=== PATIENT | female | born 1975 | race Caucasian/White ===

== ENCOUNTER 2024-01-09 16:51 | Emergency (ER) | payer OTHER, SELFPAY ==
[2024-01-09 16:53] VITALS: BP 150/89
[2024-01-09 18:09] VITALS: BP 130/87
[2024-01-09] MEDS: TORADOL 15 MG IV (18:17)
[2024-01-09] MEDS: NSS 1000 IV (18:18)
[2024-01-09 18:25] LABS: % Basophils 0.6 % (0-2); % Immature Granulocytes 0.4 % (0-0.5); % Lymphocytes 27.9 % (20.5-51.1); % Monocytes 7.5 % (1.7-9.3); % Neutrophils 62.6 % (42.2-75.2); Absolute Basophils 0.1 10^3/uL (0-0.2); Absolute Eosinophils 0.1 10^3/uL (0-0.7); Absolute Lymphocytes 2.2 10^3/uL (1.2-3.4); Absolute Monocytes 0.6 10^3/uL (0.1-0.6); Absolute Neutrophils 4.9 10^3/uL (1.4-6.5); Hematocrit 36.1 % (37.0-47.0); Hemoglobin 13.3 g/dL (12.0-16.0); Mean Corp Hgb Conc. 36.8 g/dL (33.0-37.0); Mean Corpuscular Hgb 32.5 pg (27.0-31.0); Mean Corpuscular Volume 88.3 fL (81.0-99.0); Mean Platelet Volume 8.7 fL (7.4-10.4); Nucleated Red Blood Cells % 0 %; Platelet Count 227 10^3/uL (130-400); Red Blood Cell Count 4.09 10^6/uL (4.20-5.40); Red Cell Dist. Width 12.7 % (11.5-14.5); White Blood Cell Count 7.8 10^3/uL (4.8-10.8)
[2024-01-09 18:38] LABS: ALT (SGPT) 34 U/L (0-35); AST (SGOT) 40 U/L (14-36); Albumin 4.5 g/dl (3.5-5.0); Alkaline Phosphatase 86 U/L (38-126); Blood Urea Nitrogen 20 mg/dl (7-17); Calcium 9.1 mg/dl (8.4-10.2); Carbon Dioxide 29 mmol/L (22-30); Chloride 103 mmol/L (98-107); Glucose 99 mg/dl (70-99); Lipase 99 U/L (23-300); Sodium 138 mmol/L (135-145); Total Bilirubin 0.7 mg/dl (0.2-1.3); eGFR > 60.00
--- NOTE | 2024-01-09 18:47 | ED.GENMED ---
History of Present Illness
General
Chief Complaint: Abdominal Symptoms
Source: patient
Exam Limitations: none
Time Seen by Provider: 01/09/24 17:19
Nursing documentation reviewed up to this point in time: agreed with
Travel History
Have you had any contact with someone who has COVID-19?: No
Do you have any symptoms of coronavirus? Fever > 100 degrees, chills, cough, shortness of breath, sore throat, loss of taste or smell, muscle aches, or headache?: No
History of Present Illness
History of Present Illness:
48-year-old female with history of diverticulitis, endometriosis, kidney stones, C-sections, surgery for her endometriosis with total hysterectomy in 2008 in [place] due to, appendectomy in 2019 in [place], patient presents stating she
developed right lower quadrant pain 4 days ago that has spread to her suprapubic area and generally in the abdomen and including the right lower back. 'Feels like there is a giant ball in my abdomen.' Sometimes pains are sharp and stabbing. Last
week she had a formed stool and noted blood in it. Today she had another bloody stool.
She denies fever or chills. Denies UTI symptoms. Denies vomiting but she does feel nauseous.
Past History
Past History
ED Past Medical History: Other (Endometriosis, kidney stones)
ED Past Surgical History: Gynecological (TAHBSO) and Urological
Social History
Tobacco: Non-smoker
Alcohol: Occasional
Drug: None
Personal:
Living: with family
Employment: Employed
Family History
Family History: Other (glaucoma)
Review of Systems
Review of Systems
Allergies reviewed?: Yes
All Other Systems: ROS reviewed and negative except as documented in HPI and ROS
Constitutional: Denies fever
Respiratory: Denies trouble breathing
Cardiac: Denies chest pain
ABD/GI: Reports abdominal pain, nausea and bloody stools; Denies vomiting, diarrhea, constipated, black stools or anorexia
: Denies dysuria, frequency, difficulty voiding, urgency or bleeding
Musculoskeletal: Reports no symptoms
Skin: Reports no symptoms
Neurological: Reports no symptoms
Phy Exam
Physical Exam
Physical Exam:
GENERAL: No acute distress. A&Ox3.
CONSTITUTIONAL: Afebrile.
EYES: PERRL, conjunctivae normal
ENMT: moist mucus membranes, Pharynx nl
RESPIRATORY: Regular respirations, nonlabored, lungs clear.
CARDIOVASCULAR: Regular rate and rhythm, no murmurs, no rubs.
GI: Soft, generally tender abdomen, normal BS
MUSCULOSKELETAL: Moves with ease. Well perfused.
SKIN: Warm, dry, pink
PSYCH: Mildly anxious mood and affect. Well kept, interactive and appropriate
NEUROLOGIC: Awake, alert and oriented. No focal neurological deficits
Course
Orders/Labs/Results
Orders:
Orders
01/09/24 18:01
Electrocardiogram (*1) Urgent
Reason for Study: QTc Monitoring
EKG- Treatment ONCE
0.9% Sodium Chloride 1000 ml [Nss] 1,000 ml IV BOLUS
Ketorolac [Toradol] 15 mg IV NOW STA
01/09/24 18:16
Complete Blood Count/With Diff Urgent
Comprehensive Metabolic Panel Urgent
Lipase Urgent
01/09/24 18:46
Ondansetron Injectable [Zofran] 4 mg IV NOW STA
01/09/24 18:52
Iohexol [Omnipaque] 50 ml .ROUTE .[facility]
01/09/24 18:59
Iohexol [Omnipaque] See Protocol PO NOW STA
01/09/24 19:02
CT Abd/pel W Iv And Oral Contr Urgent
Comment:
Reason For Exam: general abd pain, blood in stool
01/09/24 19:29
HYDROmorphone [Dilaudid] 1 mg IV NOW STA
01/09/24 20:42
Urinalysis Reflex To Culture Urgent
Date Specimen was Collected: 01/09/24
Time Specimen was Collected: 20:08
Urine Microscopic Reflex Cult Urgent
01/09/24 21:43
LevoFLOXacin [Levaquin] 500 mg PO NOW STA
MetroNIDAZOLE [Flagyl] 500 mg PO NOW STA
01/09/24 21:48
HYDROmorphone [Dilaudid] 0.5 mg IV NOW STA
Abnormal Lab Results
01/09/24 01/09/24
18:16 20:42
RBC 4.09 L 10^6/uL
(4.20-5.40)
Hct 36.1 L %
(37.0-47.0)
MCH 32.5 H pg
(27.0-31.0)
BUN 20 H mg/dl
(7-17)
AST 40 H U/L
(14-36)
Ur Occult Blood Reflex 1+ A
(Negative)
Leukocyte Esterase Rfl Trace A
(Negative)
Urine RBC 3-6 A /HPF
(0-2)
01/09/24 18:16
01/09/24 18:16
Vital Signs
Initial and Last Documented VS:
Initial Vital Signs
Temp Pulse Resp BP Pulse Ox
98.8 F 95 16 150/89 98
01/09/24 16:53 01/09/24 16:53 01/09/24 16:53 01/09/24 16:53 01/09/24 16:53
Last Documented Vital Signs
Temp Pulse Resp BP Pulse Ox
98.8 F 75 18 134/93 99
01/09/24 16:53 01/09/24 21:56 01/09/24 21:56 01/09/24 21:54 01/09/24 21:56
MDM/Problems Addressed
Differential Diagnosis Includes:
Diverticulitis, colitis
MDM/Problems Addressed:
48-year-old female with history of diverticulitis, endometriosis, kidney stones, C-sections, surgery for her endometriosis with total hysterectomy in 2009 in [place] due to, appendectomy in 2019 in [place], patient presents stating she
developed right lower quadrant pain 4 days ago that has spread to her suprapubic area and generally in the abdomen and including the right lower back. 'Feels like there is a giant ball in my abdomen.' Sometimes pains are sharp and stabbing. Last
week she had a formed stool and noted blood in it. Today she had another bloody stool.
She denies fever or chills. Denies UTI symptoms. Denies vomiting but she does feel nauseous.
Afebrile
EKG NSR, normal QT interval
7:00 PM
CBC unremarkable
CMP unremarkable
UA negative
9:00 p.m.
IMPRESSION:
Under distention versus mild wall thickening/colitis involving the descending colon.
Mild colonic fecal burden.
No dilated bowel loops or evidence of bowel obstruction. No evidence of pneumatosis.
Nonobstructing right renal calculi.
Pt significant relief of pain after pain med, states pain is returning 7/ pain med ordered
Pt with allergy to PCN, started on Flagyl/Levaquin. Rx sent to her pharmacy
Small dose of pain meds sent to her pharmacy
*EKG
Interpreted by ED Provider?: Yes
EKG Intrepretation Date: 01/09/24
Interpretation: normal
Rate: normal
Rhythm: sinus
[place]: normal axis
Interval: normal interval
QRS Pattern: normal QRS
Ischemia: no ischemia
*Critical Care Note
Total Time (30-74mins, 75-104mins- exclusive of procedures): Not Applicable
ED Attending Note
-
Portions of this chart may have been created with voice recognition software.� Occasional wrong word or��sound alike� substitutions may have occurred due to the inherent limitations of voice recognition software.
Discharge Plan
Departure
Patient Disposition: Home (Routine Discharge)
Date of Disposition: 01/09/24
Time of Disposition: 21:51
Patient with high blood pressure during this ER visit?: No
Condition: Good
Discharge Problem:
Colitis
Instructions: Colitis, Clear Liquid Diet
Prescriptions:
New
hydrocodone-acetaminophen 5-325 mg tablet
1 tab PO Q8H PRN (Reason: Pain) Qty: 6 0RF
metronidazole 500 mg tablet
500 mg PO TID Qty: 20 0RF
levofloxacin 500 mg tablet
500 mg PO DAILY 6 Days Qty: 6 0RF
No Action
escitalopram oxalate 20 MG tablet
30 mg PO DAILY
buprenorphine-naloxone 1 TAB tablet, sublingual
0.25 ea sublingual .QTHREEDAYS PRN (Reason: withdrawl)
brexpiprazole [Rexulti] 1 MG tablet
1 mg PO DAILY
ketorolac 10 MG tablet
10 mg PO Q6HPRN PRN (Reason: severe pain) Qty: 20 0RF
tolterodine 4 MG capsule,extended release 24hr
4 mg PO DAILY Qty: 7 0RF
ketorolac 10 MG tablet
10 mg PO Q6HPRN PRN (Reason: Pain) Qty: 20 0RF
tamsulosin 0.4 MG capsule
0.4 mg PO DAILY Qty: 5 0RF
ondansetron 4 MG tablet,disintegrating
4 mg PO Q8HPRN PRN (Reason: Nausea/Vomiting) Qty: 10 0RF
diclofenac sodium 75 mg tablet,delayed release (DR/EC)
75 mg PO BID Qty: 10 0RF
oxycodone-acetaminophen [Percocet] 5-325 mg Tablet
1 tab PO Q4HPRN PRN (Reason: pain) Qty: 10 0RF
Referrals:
Rosalinda Bynum DO [Family Provider] -
Xavi Matthews MD [Active] - Next open appointment
Activity Restrictions/Additional Instructions:
As we discussed, I am treating you for colitis. Call the GI doctors office Friday morning and make next available appointment for follow-up.
I sent a prescription to your pharmacy for the antibiotics to take for 7 days you were given your first doses here today
I also sent a prescription for hydrocodone to use as needed for pain that is not relieved with ibuprofen.
Clear liquid diet for 2 days to give your bowel a rest.
Interventions
Interventions:
*Risk Screen - Suicide Last Done: 01/09/24 18:21
*General Assessment Last Done: 01/09/24 18:21
*Neglect/Abuse Screening Last Done: 01/09/24 18:21
ED- Fall Risk Assessment Last Done: 01/09/24 22:07
*ED COVID-19 Vaccine History Last Done: 01/09/24 16:53
*Nursing Disposition Last Done: 01/09/24 22:07
RT-Rwqobk-Bwveldlxgd Assessment Last Done: 01/09/24 18:16
Discharge Date and Time
Discharge Date/Time: 01/09/24 22:07
Print Language: OCCITAN
[2024-01-09] MEDS: ZOFRAN 4 MG IV (18:53)
[2024-01-09 19:00] VITALS: BP 125/83
[2024-01-09] MEDS: OMNIPAQUE 50 ML PO (19:04)
[2024-01-09] MEDS: DILAUDID 1 MG IV (19:32)
[2024-01-09 20:50] LABS: Urine Albumin Negative (Neg - Trace); Urine Bilirubin Negative (Negative); Urine Character Clear (Clear); Urine Color Yellow; Urine Glucose Negative (Negative); Urine Ketone Negative (Negative); Urine Leukocyte Trace (Negative); Urine Nitrite Negative (Negative); Urine Occult Blood 1+ (Negative); Urine Specific Gravity 1.015 (<1.030); Urine Urobilinogen Negative (Neg - 1+)
[2024-01-09 21:05] LABS: Urine Mucus Few
[2024-01-09 21:08] LABS: Urine White Cell 0-2 /HPF (0-5)
[2024-01-09] MEDS: FLAGYL 500 MG PO (21:51)
[2024-01-09] MEDS: LEVAQUIN 500 MG PO (21:51)
[2024-01-09] MEDS: DILAUDID 0.5 MG IV (21:51)
[2024-01-09 21:54] VITALS: BP 134/93
== END 2024-01-09 22:07 | disposition home or self-care (01) ==
LOC: EMR 16:51
PROVIDERS: Registered Nurse; EMERGENCY PHYSICIAN Emergency Medicine; FAMILY PHYSICIAN Family Medicine
DX: K52.9 Noninfective gastroenteritis and colitis, unspecified (principal)
CPT/HCPCS: 99285; 96374; 96375 ×2; 96361; 96376; 74177; 80053; 81003; 81015; 83690; 85025; 93005; Q9967

== ENCOUNTER 2024-10-12 14:25 | Emergency (ER) | payer OTHER, SELFPAY ==
[2024-10-12 14:27] VITALS: BP 150/97
[2024-10-12 14:47] LABS: % Basophils 0.3 % (0-2); % Eosinophils 0.6 % (0-6); % Immature Granulocytes 0.3 % (0-0.5); % Lymphocytes 9.3 % (20.5-51.1); % Monocytes 6.2 % (1.7-9.3); % Neutrophils 83.3 % (42.2-75.2); Absolute Eosinophils 0.1 10^3/uL (0-0.7); Absolute Lymphocytes 1.2 10^3/uL (1.2-3.4); Absolute Monocytes 0.8 10^3/uL (0.1-0.6); Absolute Neutrophils 10.6 10^3/uL (1.4-6.5); Hematocrit 37.3 % (37.0-47.0); Hemoglobin 13.6 g/dL (12.0-16.0); Mean Corp Hgb Conc. 36.5 g/dL (33.0-37.0); Mean Corpuscular Hgb 33.6 pg (27.0-31.0); Mean Corpuscular Volume 92.1 fL (81.0-99.0); Mean Platelet Volume 8.7 fL (7.4-10.4); Nucleated Red Blood Cells % 0 %; Platelet Count 238 10^3/uL (130-400); Red Blood Cell Count 4.05 10^6/uL (4.20-5.40); Red Cell Dist. Width 12.4 % (11.5-14.5); White Blood Cell Count 12.7 10^3/uL (4.8-10.8)
[2024-10-12 15:12] LABS: ALT (SGPT) 35 U/L (0-35); AST (SGOT) 35 U/L (14-36); Albumin 4.4 g/dl (3.5-5.0); Alkaline Phosphatase 100 U/L (38-126); Blood Urea Nitrogen 16 mg/dl (7-17); Calcium 9.4 mg/dl (8.4-10.2); Carbon Dioxide 28 mmol/L (22-30); Chloride 99 mmol/L (98-107); Glucose 137 mg/dl (70-99); Lipase 119 U/L (23-300); Potassium 4.2 mmol/L (3.5-5.1); Sodium 135 mmol/L (135-145); Total Bilirubin 0.8 mg/dl (0.2-1.3); Total Protein 7.1 g/dl (6.3-8.2); eGFR > 60.00
[2024-10-12 15:30] VITALS: BMI 25.4
--- NOTE | 2024-10-12 15:30 | ED.GENMED ---
History of Present Illness
General
Chief Complaint: Abdominal Pain
Source: patient
Exam Limitations: none
Time Seen by Provider: 10/12/24 15:19
Nursing documentation reviewed up to this point in time: agreed with
History of Present Illness
History of Present Illness:
48-year-old female with past medical history as noted presents to the ER for evaluation of abdominal pain also complaining of severe headache. Patient reports symptoms started yesterday and gradually worsened throughout the day have been constant
since then. She reports initially started with sharp pain in the suprapubic region radiating through towards the right abdomen/flank. She said she did briefly have some shooting pains down the right leg as well although that seems to have
resolved. She says that she has had associated nausea, no vomiting. No diarrhea or constipation. She reports that this morning when she woke up abdominal/flank pain continued and she started to develop a severe headache which she says is very
unusual for her. She reports diffuse pressure sensation in head. She did have minor head strike on a bathroom cabinet but no other serious trauma. She denies any neck pain or stiffness. She denies any other complaints. She did take Advil today
for symptoms at around noon but did not notice improvement. Prior surgical history of appendectomy, hysterectomy and laparoscopy for endometriosis. Chart review shows multiple visits in the past for right-sided abdominal pain of unclear etiology.
Past History
Past History
ED Past Medical History: Other (Endometriosis, kidney stones)
ED Past Surgical History: Gynecological (TAHBSO) and Urological
Social History
Tobacco: Non-smoker
Alcohol: Occasional
Drug: None
Personal:
Living: with family
Employment: Employed
Family History
Family History: Other (glaucoma)
Review of Systems
Review of Systems
All Other Systems: ROS reviewed and negative except as documented in HPI and ROS
Constitutional: Denies fever or chills
Respiratory: Denies trouble breathing
Cardiac: Denies chest pain
ABD/GI: Reports abdominal pain and nausea; Denies vomiting, diarrhea or constipated
: Reports flank pain; Denies dysuria, frequency or bleeding
Musculoskeletal: Denies neck pain
Neurological: Reports headache
Phy Exam
Physical Exam
Physical Exam:
General: Awake, alert, oriented x3; no acute distress
Head: Normocephalic, atraumatic
Eyes: Conjunctiva normal, sclera anicteric
Throat: Airway intact, handling secretions
Neck: Trachea midline, supple without meningismus
Lungs: Breathing comfortably no distress
Heart: Regular rate
Abd: Soft, non distended, minimally tender right upper and lower abdomen; no masses, no peritoneal signs
Neuro: Cranial nerves grossly intact, speech fluid, no gross motor or sensory deficits
Extremities: Warm and well-perfused
Scores
Heart Failure Risk
Heart Failure Risk Score: Not Applicable
Heart Score for Chest Pain Patients
STEMI patient?: Not applicable
Withdrawal Assessment of Alcohol
Withdrawal Assessment Completed?: Not applicable
Course
Orders/Labs/Results
Orders:
Orders
10/12/24 14:33
Complete Blood Count/With Diff Urgent
Comprehensive Metabolic Panel Urgent
HCG, Serum Qualitative Screen Urgent
Comment: ADD ON
Lipase Urgent
10/12/24 15:21
Test Result ONCE
10/12/24 15:29
CT Abd/pel Without Iv Or Oral Urgent
Comment:
Reason For Exam: right flank/abd pain
Ketorolac [Toradol] 15 mg IV NOW STA
10/12/24 15:30
CT Head W/o Iv Contrast Urgent
Comment:
Reason For Exam: severe headache
0.9% Sodium Chloride 1000 ml [Nss] 1,000 ml IV BOLUS
10/12/24 15:35
Add On- LAB Urgent
Comments:: serum hcg qualitative
Tests Added?: serum hcg qualitative
10/12/24 15:55
Urinalysis Reflex To Culture Urgent
Date Specimen was Collected: 10/12/24
Time Specimen was Collected: 15:43
Urine Microscopic Reflex Cult Urgent
10/12/24 16:32
HYDROmorphone [Dilaudid] 0.5 mg IV NOW STA
Abnormal Lab Results
10/12/24 10/12/24
14:33 15:55
WBC 12.7 H 10^3/uL
(4.8-10.8)
RBC 4.05 L 10^6/uL
(4.20-5.40)
MCH 33.6 H pg
(27.0-31.0)
Absolute Neuts (auto) 10.6 H 10^3/uL
(1.4-6.5)
Absolute Monos (auto) 0.8 H 10^3/uL
(0.1-0.6)
Neutrophils % 83.3 H %
(42.2-75.2)
Lymphocytes % 9.3 L %
(20.5-51.1)
Glucose 137 H mg/dl
(70-99)
Ur Occult Blood Reflex 2+ A
(Negative)
Urine RBC 7-10 A /HPF
(0-2)
Urine Bacteria (Reflex) Few A
(Negative)
Urine Albumin (Reflex) 1+ A
(Neg - Trace)
10/12/24 14:33
10/12/24 14:33
Vital Signs
Initial and Last Documented VS:
Initial Vital Signs
Temp Pulse Resp BP Pulse Ox
36.9 C 89 20 150/97 94
10/12/24 14:27 10/12/24 14:27 10/12/24 14:27 10/12/24 14:27 10/12/24 14:27
Last Documented Vital Signs
Temp Pulse Resp BP Pulse Ox
36.9 C 86 18 134/88 100
10/12/24 16:39 10/12/24 16:39 10/12/24 16:39 10/12/24 16:39 10/12/24 16:39
MDM/Problems Addressed
Differential Diagnosis Includes:
Abdominal pain/flank pain: Nephrolithiasis, UTI/pyelonephritis, lumbar radiculopathy, oblique/abdominal wall strain, cholelithiasis/cholecystitis
Headache: Tension headache, migraine headache, brain bleed considered less likely
MDM/Problems Addressed:
48-year-old female presents for evaluation of right-sided abdominal pain started yesterday; she also complains of significant headache that started today. She is very concerned about both the symptoms and says that they are unusual however chart
review shows multiple visits with similar symptoms. Hypertensive otherwise normal vitals. Physical exam as above. Check labs including a CBC and a CMP, lipase. Check urinalysis. Will check CT of the head as well as a CT abdomen pelvis. Treat
pain, provide fluids and antiemetic. Monitor closely reassess after the above.
Labs reviewed: CBC shows slight leukocytosis to 12.7, CMP no clinically significant abnormalities. Lipase normal. Urinalysis did have some RBCs but no signs of acute infection. CT head negative for any acute pathology. CT abdomen pelvis negative
for any acute pathology. Unclear etiology to her symptoms at this point�could be a recently passed kidney stone given small amount of hematuria but given that she is continuing to have some mild pain with no stone noted on CT this seems less
likely. Could be transient obstruction from intrarenal stone. It also be lumbar radiculopathy or muscular pain. At this point patient is feeling better after ED treatment I think she is stable for discharge. Supportive care, encourage p.o.
fluids, follow-up with PCP. Provided copy of CT reports for follow-up. She feels comfortable this plan. All questions answered.
*Radiology
Radiology exam reviewed: radiology read reviewed
*Pulse Oximetry
Patient hypoxic: no
*Critical Care Note
Total Time (30-74mins, 75-104mins- exclusive of procedures): Not Applicable
Data Reviewed
Review of Other/Old Records Reveals: Labs, Records and Radiology Studies
Source: patient and records
Update Note
Update Note:
Queried PDMP: Patient has prescriptions from her primary provider for chronic medications but no red flag opioid prescriptions noted
ED Attending Note
-
Portions of this chart may have been created with voice recognition software.� Occasional wrong word or��sound alike� substitutions may have occurred due to the inherent limitations of voice recognition software.
Discharge Plan
Departure
Patient Disposition: Home (Routine Discharge)
Date of Disposition: 10/12/24
Time of Disposition: 17:52
Patient with high blood pressure during this ER visit?: Yes
Discharge Problem:
Right flank pain, Headache
Instructions: Headaches in adults, Abdominal Pain
Prescriptions:
New
oxycodone 5 mg tablet
5 mg PO TID PRN (Reason: Pain) Qty: 10 0RF
No Action
escitalopram oxalate 20 MG tablet
30 mg PO DAILY
buprenorphine-naloxone 1 TAB tablet, sublingual
0.25 ea sublingual .QTHREEDAYS PRN (Reason: withdrawl)
brexpiprazole [Rexulti] 1 MG tablet
1 mg PO DAILY
ketorolac 10 MG tablet
10 mg PO Q6HPRN PRN (Reason: severe pain) Qty: 20 0RF
tolterodine 4 MG capsule,extended release 24hr
4 mg PO DAILY Qty: 7 0RF
ketorolac 10 MG tablet
10 mg PO Q6HPRN PRN (Reason: Pain) Qty: 20 0RF
tamsulosin 0.4 MG capsule
0.4 mg PO DAILY Qty: 5 0RF
ondansetron 4 MG tablet,disintegrating
4 mg PO Q8HPRN PRN (Reason: Nausea/Vomiting) Qty: 10 0RF
diclofenac sodium 75 mg tablet,delayed release (DR/EC)
75 mg PO BID Qty: 10 0RF
oxycodone-acetaminophen [Percocet] 5-325 mg Tablet
1 tab PO Q4HPRN PRN (Reason: pain) Qty: 10 0RF
hydrocodone-acetaminophen 5-325 mg tablet
1 tab PO Q8H PRN (Reason: Pain) Qty: 6 0RF
metronidazole 500 mg tablet
500 mg PO TID Qty: 20 0RF
levofloxacin 500 mg tablet
500 mg PO DAILY 6 Days Qty: 6 0RF
Referrals:
Mira Roy CRNP [Family Provider] - Follow up in 5-7 days
Activity Restrictions/Additional Instructions:
Thank you for visiting the Emergency Department at [facility].
1. Please schedule a follow up appointment as directed. Call first thing tomorrow morning to make an appointment.
2. If indicated, please take your medications as instructed and indicated on discharge paperwork.
3. If any of your symptoms do not improve, or persist, or become more severe within 6-12 hours, please return to the emergency department for further care.
4. Please return to the emergency department if you develop a headache, neck pain/stiffness, fever greater than 100.4F, chest pain, shortness of breath, persistent nausea, vomiting, slurred speech, difficulty walking, numbness/tingling, weakness,
signs of infection or any other symptoms that are worrisome to you.
Please call [phone] if you have any questions.
Interventions
Interventions:
*Risk Screen - Suicide Last Done: 10/12/24 15:31
*General Assessment Last Done: 10/12/24 15:31
*Neglect/Abuse Screening Last Done: 10/12/24 15:31
*ED- Fall Risk Assessment Last Done: 10/12/24 15:31
*ED COVID-19 Vaccine History Last Done: 10/12/24 15:31
SX-Yoiinf-Kvcvcpliek Assessment Last Done: 10/12/24 15:45
Discharge Date and Time
Print Language: [id number]
[2024-10-12 15:34] VITALS: BP 124/79
[2024-10-12] MEDS: TORADOL 15 MG IV (15:45)
[2024-10-12] MEDS: NSS 1000 IV (15:45)
[2024-10-12 16:10] LABS: Urine Albumin 1+ (Neg - Trace); Urine Bilirubin Negative (Negative); Urine Character Clear (Clear); Urine Color Yellow; Urine Glucose Negative (Negative); Urine Ketone Negative (Negative); Urine Leukocyte Negative (Negative); Urine Nitrite Negative (Negative); Urine Occult Blood 2+ (Negative); Urine Urobilinogen Negative (Neg - 1+)
[2024-10-12 16:18] LABS: Urine Bacteria Few (Negative); Urine Squamous Cell 0-2 /LPF (Few); Urine White Cell 0-2 /HPF (0-5)
[2024-10-12 16:39] VITALS: BP 134/88
[2024-10-12] MEDS: DILAUDID 0.5 MG IV (16:40)
[2024-10-12 17:20] LABS: HCG, Serum Qualitative Screen Negative
[2024-10-12 18:11] VITALS: BP 138/91
[2024-10-12] MEDS: ROXICODONE 5 MG PO (18:14)
== END 2024-10-12 18:29 | disposition home or self-care (01) ==
LOC: EMR 14:25
PROVIDERS: Emergency Medicine; EMERGENCY PHYSICIAN Emergency Medicine; FAMILY PHYSICIAN Nurse Practitioner
DX: R10.9 Unspecified abdominal pain (principal); R51.9 Headache, unspecified; Z87.442 Personal history of urinary calculi; Z90.710 Acquired absence of both cervix and uterus; Z90.722 Acquired absence of ovaries, bilateral; R03.0 Elevated blood-pressure reading, without diagnosis of hypertension
CPT/HCPCS: 96374; 96375; 96361; 99284; 70450; 74176; 80053; 81003; 81015; 83690; 84703; 85025